=== PATIENT | female | born 1970 | race African-American/Black ===

== ENCOUNTER 2018-04-17 00:13 | Emergency (ER) | payer BC ==
[2018-04-17] MEDS ORDERED: NITROGLYCERIN 1 GM PKT TD ONE (01:02)
[2018-04-17] MEDS ORDERED: DIAZEPAM 5 MG TABLET ONE (01:02)
[2018-04-17 01:22] LABS: Absolute Lymphocytes (CBC) 1.7 K/uL (0.7-4.9); Absolute Monocytes 0.3 K/uL (0.1-1.3); Absolute Neutrophil 2.3 K/uL (1.8-8.0); Basophils % 1.1 % (0-1.3); Eosinophils % 1.8 % (0-4.4); Hematocrit 36.1 % (36.0-45.0); Lymphocytes % 39.4 % (15.3-44.8); MCH 29.6 pg (27.0-35.0); MCV 87.5 fL (80-100); MPV 9.1 fL (7.6-11.3); Monocytes % 6.9 % (3.3-12.3); RBC Red Blood Cell Count 4.12 M/uL (3.86-4.86)
[2018-04-17 01:27] LABS: Protime INR 0.92
[2018-04-17] MEDS ORDERED: cloNIDine HCl 0.1 MG TAB ONE (01:34)
[2018-04-17 02:01] LABS: ALT/SGPT 52 U/L (12-78); AST/SGOT 53 U/L (15-37); Albumin 3.5 g/dL (3.4-5.0); Alkaline Phosphatase 113 U/L (45-117); BUN Blood Urea Nitrogen 12 mg/dL (7-18); Bicarbonate 26 mmol/L (21-32); Bilirubin Direct < 0.1 mg/dL (0-0.2); Bilirubin Total 0.3 mg/dL (0.2-1.0); Glucose Level 152 mg/dL (74-106); Magnesium 2.3 mg/dL (1.8-2.4); NT PRO-BNP 300 pg/mL (<125); Potassium 3.4 mmol/L (3.5-5.1); Protein, Total 7.3 g/dL (6.4-8.2); Sodium Level 140 mmol/L (136-145); Troponin (Emerg Dept Use Only) < 0.02 ng/mL (0.0-0.045)
--- NOTE | 2018-04-17 02:26 | EDPHYS ---
Physician Documentation [facility] Name: Kiera Cowart Age: 47 yrs Sex: Female : 1970 Arrival Date: 04/17/2018 Time: 00:15 Bed 8 Private MD: Arelis Amador C ED Physician Oj Lei HPI: 04/17 01:33 This 47 yrs old Black Female presents to ER via Ambulatory with complaints of Anxiety. snw 01:33 The patient presents to the emergency department with anxiety, over unknown snw circumstances. Onset: The symptoms/episode began/occurred suddenly, unable to sleep because she felt short of breath, thinks her anxiety is high so it has increased her blood pressure. Denies headache, visual changes, nausea, chest pain. Discussed with patient that her blood pressure being so high might be the cause of her anxiety and not the reverse.. Past psychiatric history: Prior diagnosis: no previous psychiatric diagnosis known, Psychiatric medications include: none, Primary psychiatric physician: the patient does not have a primary psychiatric physician. Associated signs and symptoms: Pertinent positives; anxiety, insomnia. Severity of symptoms: At their worst the symptoms were moderate. The patient has not experienced similar symptoms in the past. pt states her PCP tried to take her off the Clonidine that she has been taking for years and put her on some other HTN med. Pt states she didn't like the way they made her feel so she has not been taking any medications.. Historical: - Allergies: 00:28 No Known Allergies; tl2 - PMHx: 00:28 Hypertension; tl2 - PSHx: 00:28 ; tl2 - Immunization history:: Adult Immunizations up to date. - Social history:: Smoking status: Patient uses tobacco products, smokes one-half pack cigarettes per day. - Ebola Screening: : No symptoms or risks identified at this time. ROS: 01:33 Constitutional: Negative for fever, chills, and weight loss, Eyes: Negative for injury, snw pain, redness, and discharge, ENT: Negative for injury, pain, and discharge, Neck: Negative for injury, pain, and swelling, Cardiovascular: Negative for chest pain, palpitations, and edema, Respiratory: Negative for shortness of breath, cough, wheezing, and pleuritic chest pain, Abdomen/GI: Negative for abdominal pain, nausea, vomiting, diarrhea, and constipation, Back: Negative for injury and pain, : Negative for injury, bleeding, discharge, and swelling, MS/Extremity: Negative for injury and deformity, Skin: Negative for injury, rash, and discoloration, Neuro: Negative for headache, weakness, numbness, tingling, and seizure. 01:33 Psych: Positive for anxiety. Exam: 01:32 Constitutional: This is a well developed, well nourished patient who is awake, alert, snw and in no acute distress. Head/Face: Normocephalic, atraumatic. Eyes: Pupils equal round and reactive to light, extra-ocular motions intact. Lids and lashes normal. Conjunctiva and sclera are non-icteric and not injected. Cornea within normal limits. Periorbital areas with no swelling, redness, or edema. ENT: Nares patent. No nasal discharge, no septal abnormalities noted. Tympanic membranes are normal and external auditory canals are clear. Oropharynx with no redness, swelling, or masses, exudates, or evidence of obstruction, uvula midline. Mucous membranes moist. Neck: Trachea midline, no thyromegaly or masses palpated, and no cervical lymphadenopathy. Supple, full range of motion without nuchal rigidity, or vertebral point tenderness. No Meningismus. Chest/axilla: Normal chest wall appearance and motion. Nontender with no deformity. No lesions are appreciated. Cardiovascular: Regular rate and rhythm with a normal S1 and S2. No gallops, murmurs, or rubs. Normal PMI, no JVD. No pulse deficits. Respiratory: Lungs have equal breath sounds bilaterally, clear to auscultation and percussion. No rales, rhonchi or wheezes noted. No increased work of breathing, no retractions or nasal flaring. Abdomen/GI: Soft, non-tender, with normal bowel sounds. No distension or tympany. No guarding or rebound. No evidence of tenderness throughout. Back: No spinal tenderness. No costovertebral tenderness. Full range of motion. Skin: Warm, dry with normal turgor. Normal color with no rashes, no lesions, and no evidence of cellulitis. MS/ Extremity: Pulses equal, no cyanosis. Neurovascular intact. Full, normal range of motion. Neuro: Awake and alert, GCS 15, oriented to person, place, time, and situation. Cranial nerves II-XII grossly intact. Motor strength 5/5 in all extremities. Sensory grossly intact. Cerebellar exam normal. Normal gait. 01:32 Psych: Behavior/mood is pleasant, cooperative, Affect is calm, Oriented to person, place, time, Patient has no thoughts/intents to harm self or others. Judgement / Insight is normal. Vital Signs: 00:28 BP 260 / 127; Pulse 65; Resp 20; Temp 97.9(O); Pulse Ox 100% on R/A; Weight 81.65 kg; tl2 Height 5 ft. 0 in. (152.40 cm); Pain 0/10; 01:24 BP 236 / 112; Pulse 70; Resp 18; Pulse Ox 100% on R/A; tl2 02:07 BP 192 / 111; Pulse 76; Resp 18; Pulse Ox 100% on R/A; tl2 02:47 BP 182 / 104; Pulse 82; Resp 18; Pulse Ox 99% on R/A; tl2 00:28 Body Mass Index 35.15 (81.65 kg, 152.40 cm) tl2 MDM: 00:52 Patient medically screened. snw 02:25 Data reviewed: vital signs, nurses notes. Data interpreted: Pulse oximetry: on room air snw is 100 %. Interpretation: normal. Counseling: I had a detailed discussion with the patient and/or guardian regarding: the historical points, exam findings, and any diagnostic results supporting the discharge/admit diagnosis, the presence of at least one elevated blood pressure reading (>120/80) during this emergency department visit, lab results, radiology results, the need for outpatient follow up, to return to the emergency department if symptoms worsen or persist or if there are any questions or concerns that arise at home. Special discussion: Based on the history and exam findings, there is no indication for further emergent testing or inpatient evaluation. I discussed with the patient/guardian the need to see the primary care provider for further evaluation of the symptoms. 04/17 00:44 Order name: PT-INR; Complete Time: : snw 04/17 00:44 Order name: NT PRO-BNP; Complete Time: 02: snw 04/17 00:44 Order name: Basic Metabolic Panel; Complete Time: snw 04/17 00:44 Order name: CBC with Diff; Complete Time: snw 04/17 00:44 Order name: LFT's; Complete Time: 02:25 snw 04/17 00:44 Order name: Magnesium; Complete Time: 02:25 snw 04/17 00:44 Order name: Troponin (emerg Dept Use Only); Complete Time: 02:25 snw 04/17 00:44 Order name: XRAY Chest (1 view) snw 04/17 00:44 Order name: EKG; Complete Time: 00:45 snw 04/17 00:44 Order name: Cardiac monitoring; Complete Time: 00:53 snw 04/17 00:44 Order name: TSH; Complete Time: 02:25 snw 04/17 00:44 Order name: EKG - Nurse/Tech; Complete Time: 00:53 snw 04/17 00:44 Order name: IV Saline Lock; Complete Time: 00:55 snw 04/17 00:44 Order name: Labs collected and sent; Complete Time: 00:55 snw 04/17 00:44 Order name: O2 Per Protocol; Complete Time: 00:53 snw 04/17 00:44 Order name: O2 Sat Monitoring; Complete Time: 00:53 snw Administered Medications: 00:57 Drug: Valium 5 mg Route: PO; tl2 02:00 Follow up: Response: No adverse reaction; Anxiety decreased tl2 00:58 Drug: Nitro-Bid Ointment 2 % 1 inches Route: Transdermal; Site: anterior chest wall; tl2 01:28 Drug: cloNIDine 0.1 mg Route: PO; tl2 02:49 Follow up: Response: No adverse reaction; Blood pressure is lowered tl2 Disposition: 05:59 Co-signature as Attending Physician, Oj Lei MD. ma2 Disposition: 04/17/18 02:25 Discharged to Home. Impression: Essential (primary) hypertension, Patient's intentional underdosing of medication regimen - no antihypertensives in months. - Condition is Stable. - Discharge Instructions: Hypertension, DASH Eating Plan, Managing Your Hypertension. - Prescriptions for Norvasc 5 mg Oral Tablet - take 1 tablet by ORAL route once daily; 20 tablet. Clonidine 0.1 mg Oral Tablet - take 1 tablet by ORAL route every 12 hours; 60 tablet. - Medication Reconciliation Form, Thank You Letter, Antibiotic Education, Prescription Opioid Use form. - Follow up: Private Physician; When: 1 - 2 days; Reason: Recheck today's complaints, Continuance of care, Re-evaluation by your physician. Follow up: Emergency Department; When: As needed; Reason: Worsening of condition. Signatures: Dispatcher [employer] EDSabrina Fairbanks, FRANCINEC RETANNER-Csnw Sara Aquino RN RN tl2 Oj Lei MD MD ma2 Corrections: (The following items were deleted from the chart) 02:50 02:25 04/17/2018 02:25 Discharged to Home. Impression: Essential (primary) tl2 hypertension; Patient's intentional underdosing of medication regimen - no antihypertensives in months. Condition is Stable. Discharge Instructions: Hypertension, DASH Eating Plan, Managing Your Hypertension. Prescriptions for Norvasc 5 mg Oral Tablet - take 1 tablet by ORAL route once daily; 20 tablet, Clonidine 0.1 mg Oral Tablet - take 1 tablet by ORAL route every 12 hours; 60 tablet. and Forms are Medication Reconciliation Form, Thank You Letter, Antibiotic Education, Prescription Opioid Use. Follow up: Private Physician; When: 1 - 2 days; Reason: Recheck today's complaints, Continuance of care, Re-evaluation by your physician. Follow up: Emergency Department; When: As needed; Reason: Worsening of condition. snw
--- NOTE | 2018-04-17 02:26 | ER ---
Nurse's Notes [facility] Name: Kiera Cowart Age: 47 yrs Sex: Female : 1970 Arrival Date: 04/17/2018 Time: 00:15 Bed 8 Private MD: Arelis Amador C Diagnosis: Essential (primary) hypertension;Patient's intentional underdosing of medication regimen-no antihypertensives in months Presentation: 04/17 00:27 Presenting complaint: Patient states: "I've been having anxiety for 2 weeks and having tl2 trouble sleeping, it's been hard to get a deep breath." Pt's BP 260/127 in triage, pt reports stopping BP medication a long time ago because it makes her feel funny. Transition of care: patient was not received from another setting of care. Onset of symptoms was April 02, 2018. Risk Assessment: Do you want to hurt yourself or someone else? Patient reports no desire to harm self or others. Initial Sepsis Screen: Does the patient meet any 2 criteria? No. Patient's initial sepsis screen is negative. Does the patient have a suspected source of infection? No. Patient's initial sepsis screen is negative. Care prior to arrival: None. 00:27 Method Of Arrival: Ambulatory tl2 00:27 Acuity: EDNA 3 tl2 Triage Assessment: 00:28 General: Appears in no apparent distress. uncomfortable, Behavior is cooperative, tl2 appropriate for age, anxious. Pain: Denies pain. Neuro: Level of Consciousness is awake, alert, obeys commands, Oriented to person, place, time, situation, Denies weakness blurred vision dizziness, headache. Cardiovascular: Denies chest pain. Respiratory: Reports shortness of breath Airway is patent Respiratory effort is even, unlabored, Respiratory pattern is regular, symmetrical. GI: No signs and/or symptoms were reported involving the gastrointestinal system. Derm: Skin is pink, warm \\T\\ dry. Historical: - Allergies: 00:28 No Known Allergies; tl2 - PMHx: 00:28 Hypertension; tl2 - PSHx: 00:28 ; tl2 - Immunization history:: Adult Immunizations up to date. - Social history:: Smoking status: Patient uses tobacco products, smokes one-half pack cigarettes per day. - Ebola Screening: : No symptoms or risks identified at this time. Screenin:30 Abuse screen: Denies threats or abuse. Nutritional screening: No deficits noted. tl2 Tuberculosis screening: No symptoms or risk factors identified. Fall Risk None identified. Assessment: 00:28 General: see triage assessment. tl2 01:31 Reassessment: Patient appears in no apparent distress at this time. No changes from tl2 previously documented assessment. Patient and/or family updated on plan of care and expected duration. Pain level reassessed. Patient is alert, oriented x 3, equal unlabored respirations, skin warm/dry/pink. 02:47 Reassessment: Patient appears in no apparent distress at this time. Patient and/or tl2 family updated on plan of care and expected duration. Pain level reassessed. Patient is alert, oriented x 3, equal unlabored respirations, skin warm/dry/pink. Pt verbalized understanding of discharge instructions, need for follow up and prescription usage Patient states feeling better. Vital Signs: 00:28 BP 260 / 127; Pulse 65; Resp 20; Temp 97.9(O); Pulse Ox 100% on R/A; Weight 81.65 kg; tl2 Height 5 ft. 0 in. (152.40 cm); Pain 0/10; 01:24 BP 236 / 112; Pulse 70; Resp 18; Pulse Ox 100% on R/A; tl2 02:07 BP 192 / 111; Pulse 76; Resp 18; Pulse Ox 100% on R/A; tl2 02:47 BP 182 / 104; Pulse 82; Resp 18; Pulse Ox 99% on R/A; tl2 00:28 Body Mass Index 35.15 (81.65 kg, 152.40 cm) tl2 ED Course: 00:15 Patient arrived in ED. am2 00:15 Arelis Amador FNP is Private Physician. am2 00:28 Triage completed. tl2 00:28 Arm band placed on right wrist. tl2 00:30 Patient has correct armband on for positive identification. Bed in low position. Call tl2 light in reach. Side rails up X 1. Adult w/ patient. 00:45 Sara Aquino RN is Primary Nurse. tl2 00:51 Sabrina Gonzalez FNP-C is [facility]. snw 00:52 Oj Lei MD is Attending Physician. snw 00:55 Inserted saline lock: 20 gauge in right forearm, using aseptic technique. Blood lp1 collected. 01:02 X-ray completed. Portable x-ray completed in exam room. Patient tolerated procedure sg4 well. 01:05 XRAY Chest (1 view) In Process Unspecified. EDMS 02:47 No provider procedures requiring assistance completed. IV discontinued, intact, tl2 bleeding controlled, No redness/swelling at site. Pressure dressing applied. Administered Medications: 00:57 Drug: Valium 5 mg Route: PO; tl2 02:00 Follow up: Response: No adverse reaction; Anxiety decreased tl2 00:58 Drug: Nitro-Bid Ointment 2 % 1 inches Route: Transdermal; Site: anterior chest wall; tl2 01:28 Drug: cloNIDine 0.1 mg Route: PO; tl2 02:49 Follow up: Response: No adverse reaction; Blood pressure is lowered tl2 Outcome: 02:25 Discharge ordered by MD. snw 02:47 Discharged to home ambulatory, with family. tl2 02:47 Condition: stable 02:47 Discharge instructions given to patient, family, Instructed on discharge instructions, follow up and referral plans. medication usage, Demonstrated understanding of instructions, follow-up care, medications, Prescriptions given X 2. 02:50 Patient left the ED. tl2 Signatures: Dispatcher [employer] EDMI Sabrina Gonzalez, PSYCHOLOGIST PERSONNEL-C PSYCHOLOGIST PERSONNEL-Csnw Tanika Wise, RN RN lp1 Sara Aquino RN RN tl2 Bhargavi Orozco Susana sg4
--- NOTE | 2018-04-17 06:07 | EKG ---
Test Date: 2018-04-17 Test Time: 00:54:55 Matchbook Maker: ROSALIND MEASUREMENT RESULTS: Intervals: Rate: 70 MA: 146 QRSD: 94 QT: 446 QTc: 481 [place]: P: 40 MA: 146 QRS: 36 T: 136 INTERPRETIVE STATEMENTS: Normal sinus rhythm Left ventricular hypertrophy with repolarization abnormality Prolonged QT Abnormal ECG Compared to ECG 07/09/2014 12:06:41 Prolonged QT interval now present Ventricular premature complex(es) no longer present Electronically Signed On 04-17-18 06:06:50 MARKETING OUTREACH COORDINATOR by Bladimir Kauffman
--- NOTE | 2018-04-17 13:47 | RAD REPORT ---
EXAM DESCRIPTION: RAD - Chest Single View - 04/17/2018 1:06 am CLINICAL HISTORY: anxiety Chest pain. COMPARISON: CHEST SINGLE VIEW dated 07/09/2014; CHEST SINGLE VIEW dated 07/04/2014; CHEST SINGLE VIEW dated 07/16/2008 FINDINGS: Portable technique limits examination quality. The lungs are grossly clear. Mildly tortuous thoracic aorta. The heart is normal in size. No displace d fractures. IMPRESSION: No acute intrathoracic process suspected.
== END 2018-04-17 02:50 | disposition home or self-care (01) ==
LOC: ER 00:13
DX: I10 Essential (primary) hypertension (principal); Z91.128 Patient's intentional underdosing of medication regimen for other reason; F17.210 Nicotine dependence, cigarettes, uncomplicated
CPT/HCPCS: 36415; 71045; 80048; 80076; 83735; 83880; 84443; 84484; 85025; 85610; 93005; 99284

== ENCOUNTER 2018-07-20 10:32 | Emergency (ER) | payer SELFPAY ==
[2018-07-20] MEDS ORDERED: cloNIDine HCl 0.1 MG TAB ONE (11:48)
[2018-07-20] MEDS ORDERED: DIAZEPAM 2 MG TABLET ONE (11:48)
[2018-07-20] MEDS ORDERED: HYDROCODONE/APAP 5/325 MG TAB ONE (11:48)
--- NOTE | 2018-07-20 12:05 | RAD REPORT ---
EXAM DESCRIPTION: Jazmin Henao (2 Views)07/20/2018 11:57 am CLINICAL HISTORY: Cough COMPARISON: March 2018 FINDINGS: The lungs appear clear of acute infiltrate. The heart is borderline enlarged IMPRESSION: No acute abnormalities displayed
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
== END 2018-07-20 12:31 | disposition home or self-care (01) ==
LOC: ER 10:32
DX: M54.5 Low back pain (principal); V49.40XA Driver injured in collision with unspecified motor vehicles in traffic accident, initial encounter; I10 Essential (primary) hypertension; F17.210 Nicotine dependence, cigarettes, uncomplicated
CPT/HCPCS: 71046; 99284

== ENCOUNTER 2018-09-16 08:03 | Emergency (ER) | payer SELFPAY ==
[2018-09-16] MEDS ORDERED: HYDROCODONE/APAP 7.5/325 MG TAB ONE (08:36)
--- NOTE | 2018-09-16 09:55 | RAD REPORT ---
EXAM DESCRIPTION: RAD - Wrist Left 3 View - 09/16/2018 9:17 am CLINICAL HISTORY: Fall, wrist pain COMPARISON: None. FINDINGS: No fracture is identified. There is no dislocation or periosteal reaction noted. Patient h as a minimal negative ulnar variance configuration. This is usually asymptomatic. Configuration of t he scaphoid is somewhat irregular but without a definitive fracture. Correlation can be made with any focal pain symptoms near the scaphoid. Repeat imaging can be performed in 7 days if the patient is s till symptomatic. Scapholunate joint space is normal. IMPRESSION: No fracture or acute bone finding confirmed. Configuration of the scaphoid is probably s till normal range. Repeat imaging can be performed in 7 days to re-evaluate the scaphoid if the patie nt has localizing symptoms.
--- NOTE | 2018-09-16 10:14 | EDPHYS ---
Physician Documentation [facility] Name: Kiera Cowart Age: 48 yrs Sex: Female : 1970 Arrival Date: 09/16/2018 Time: 08:06 Bed 15 Private MD: None, None ED Physician Oj Lei HPI: 09/16 10:01 This 48 yrs old Black Female presents to ER via Ambulatory with complaints of Fall kb Injury, Wrist Injury. 10:01 Details of fall: The patient fell from an upright position, while running. Onset: The kb symptoms/episode began/occurred yesterday. Associated injuries: The patient sustained left wrist, decreased range of motion, painful injury. Severity of symptoms: At their worst the symptoms were moderate, in the emergency department the symptoms are unchanged. The patient has not experienced similar symptoms in the past. The patient has not recently seen a physician. Pt reports left wrist and hand pain after falling last night. Reports it was dark outside, she was running through an [employer] complex because she was worried about snakes and she fell. . 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 - Social history:: Smoking status: Patient uses tobacco products, smokes one pack cigarettes per day. - Ebola Screening: : Patient negative for fever greater than or equal to 101.5 degrees Fahrenheit, and additional compatible Ebola Virus Disease symptoms Patient denies exposure to infectious person Patient denies travel to an Ebola-affected area in the 21 days before illness onset No symptoms or risks identified at this time. ROS: 09:58 Constitutional: Negative for fever, chills, and weight loss, Cardiovascular: Negative kb for chest pain, palpitations, and edema, Respiratory: Negative for shortness of breath, cough, wheezing, and pleuritic chest pain, Abdomen/GI: Negative for abdominal pain, nausea, vomiting, diarrhea, and constipation, Skin: Negative for injury, rash, and discoloration, Neuro: Negative for headache, weakness, numbness, tingling, and seizure. 09:58 MS/extremity: Positive for injury or acute deformity, decreased range of motion, pain, tenderness, of the left wrist. Exam: 09:58 Constitutional: This is a well developed, well nourished patient who is awake, alert, kb and in no acute distress. Head/Face: Normocephalic, atraumatic. Chest/axilla: Normal chest wall appearance and motion. Nontender with no deformity. No lesions are appreciated. Cardiovascular: Regular rate and rhythm with a normal S1 and S2. No gallops, murmurs, or rubs. Normal PMI, no JVD. No pulse deficits. Respiratory: Lungs have equal breath sounds bilaterally, clear to auscultation and percussion. No rales, rhonchi or wheezes noted. No increased work of breathing, no retractions or nasal flaring. Abdomen/GI: Soft, non-tender, with normal bowel sounds. No distension or tympany. No guarding or rebound. No evidence of tenderness throughout. Skin: Warm, dry with normal turgor. Normal color with no rashes, no lesions, and no evidence of cellulitis. Neuro: Awake and alert, GCS 15, oriented to person, place, time, and situation. Cranial nerves II-XII grossly intact. Motor strength 5/5 in all extremities. Sensory grossly intact. Cerebellar exam normal. Normal gait. 09:58 Musculoskeletal/extremity: Extremities: grossly normal except: noted in the left wrist: decreased ROM, pain, tenderness, ROM: limited active range of motion due to pain, in the left wrist and left hand, Circulation is intact in all extremities. Sensation intact. Vital Signs: 08:18 BP 190 / 107; Pulse 99; Resp 18 S; Temp 98.3; Pulse Ox 98% on R/A; Weight 81.65 kg; hj Height 5 ft. 0 in. (152.40 cm); Pain 10/10; 09:24 BP 181 / 100; Pulse 80; Resp 18; Pulse Ox 99% on R/A; hj 10:23 BP 184 / 100; Pulse 77; Resp 18; Pulse Ox 100% on R/A; hj 11:17 BP 165 / 101; Pulse 97; Resp 16; Pulse Ox 100% on R/A; aj 08:18 Body Mass Index 35.15 (81.65 kg, 152.40 cm) hj MDM: 08:18 Patient medically screened. kb 09:57 Data reviewed: vital signs, nurses notes. Data interpreted: Pulse oximetry: on room air kb is 99 %. Interpretation: normal. Counseling: I had a detailed discussion with the patient and/or guardian regarding: the historical points, exam findings, and any diagnostic results supporting the discharge/admit diagnosis, radiology results, the need for outpatient follow up, a orthopedic surgeon, to return to the emergency department if symptoms worsen or persist or if there are any questions or concerns that arise at home. 09/16 08:21 Order name: Wrist Left (3 View) XRAY; Complete Time: 09:57 kb 09/16 09:58 Order name: Wrist Splint; Complete Time: 10:25 kb 09/16 10:03 Order name: Vital Signs; Complete Time: 10:25 kb Administered Medications: 08:22 Drug: [place] (7.5 mg-325 mg) 1 tabs Route: PO; hj 09:38 Follow up: Response: No adverse reaction; Pain is decreased hj 10:28 Drug: cloNIDine 0.1 mg Route: PO; hj 10:32 Follow up: Response: No adverse reaction hj 10:32 Follow up: Response: Blood pressure is lowered hj Disposition: 17:15 Co-signature as Attending Physician, Oj Lei MD. ma2 Disposition: 09/16/18 10:14 Discharged to Home. Impression: Pain in left wrist, Fall on same level from slipping, tripping and stumbling. - Condition is Stable. - Discharge Instructions: Wrist Pain, [id number]. - Prescriptions for Diclofenac Sodium 75 mg Oral Tablet, Delayed Release (E.C.) - take 1 tablet by ORAL route 2 times per day As needed; 30 tablet. - Medication Reconciliation Form, Thank You Letter, Antibiotic Education, Prescription Opioid Use form. - Follow up: Emergency Department; When: As needed; Reason: Worsening of condition. Follow up: Private Physician; When: 2 - 3 days; Reason: Recheck today's complaints, Continuance of care, Re-evaluation by your physician. - Notes: If pain persists, follow up with ortho for re-evaluation and repeat x-ray in 7 days Signatures: Dispatcher [employer] Rosa Vela FNP-C FNP-Ckb Bhargavi Ochoa, RN Elisabeth Bolaños, RN RN Naeem Espinosa RN RN Oj Santoyo MD MD ma2 Corrections: (The following items were deleted from the chart) 11:21 10:14 09/16/2018 10:14 Discharged to Home. Impression: Pain in left wrist; Fall on same aj level from slipping, tripping and stumbling. Condition is Stable. Discharge Instructions: Wrist Pain, Cnab-mr-Ojne. Prescriptions for Diclofenac Sodium 75 mg Oral Tablet, Delayed Release (E.C.) - take 1 tablet by ORAL route 2 times per day As needed; 30 tablet. and Forms are Medication Reconciliation Form, Thank You Letter, Antibiotic Education, Prescription Opioid Use. Follow up: Emergency Department; When: As needed; Reason: Worsening of condition. Follow up: Private Physician; When: 2 - 3 days; Reason: Recheck today's complaints, Continuance of care, Re-evaluation by your physician. kb
--- NOTE | 2018-09-16 10:14 | ER ---
Nurse's Notes [facility] Name: Kiera Cowart Age: 48 yrs Sex: Female : 1970 Arrival Date: 09/16/2018 Time: 08:06 Bed 15 Private MD: None, None Diagnosis: Pain in left wrist;Fall on same level from slipping, tripping and stumbling Presentation: 09/16 08:16 Presenting complaint: Patient states: fell last night, from standing, fell to left left iw side, tried to catch herself, no has pain 10/10 to left wrist/hand. Transition of care: patient was not received from another setting of care. Onset of symptoms was September 15, 2018. Risk Assessment: Do you want to hurt yourself or someone else? Patient reports no desire to harm self or others. Initial Sepsis Screen: Does the patient meet any 2 criteria? No. Patient's initial sepsis screen is negative. Does the patient have a suspected source of infection? No. Patient's initial sepsis screen is negative. Care prior to arrival: None. 08:16 Method Of Arrival: Ambulatory iw 08:16 Acuity: EDNA 4 iw Triage Assessment: 08:33 General: Appears in no apparent distress. uncomfortable, Behavior is calm, cooperative, hj appropriate for age. Pain: Complains of pain in left hand. 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 - Social history:: Smoking status: Patient uses tobacco products, smokes one pack cigarettes per day. - Ebola Screening: : Patient negative for fever greater than or equal to 101.5 degrees Fahrenheit, and additional compatible Ebola Virus Disease symptoms Patient denies exposure to infectious person Patient denies travel to an Ebola-affected area in the 21 days before illness onset No symptoms or risks identified at this time. Screenin:32 Abuse screen: Denies threats or abuse. Denies injuries from another. Nutritional hj screening: No deficits noted. Tuberculosis screening: No symptoms or risk factors identified. Fall Risk None identified. Assessment: 08:33 General: Appears in no apparent distress. uncomfortable, Behavior is calm, cooperative, hj appropriate for age. Pain: Complains of pain in L wrist. Neuro: Level of Consciousness is awake, alert, obeys commands, Oriented to person, place, time, situation, Appropriate for age. Cardiovascular: Capillary refill < 3 seconds Patient's skin is warm and dry. Respiratory: Airway is patent Respiratory effort is even, unlabored, Respiratory pattern is regular, symmetrical. GI: No signs and/or symptoms were reported involving the gastrointestinal system. : No signs and/or symptoms were reported regarding the genitourinary system. EENT: No signs and/or symptoms were reported regarding the EENT system. Derm: No signs and/or symptoms reported regarding the dermatologic system. Musculoskeletal: No signs and/or symptoms reported regarding the musculoskeletal system. Vital Signs: 08:18 BP 190 / 107; Pulse 99; Resp 18 S; Temp 98.3; Pulse Ox 98% on R/A; Weight 81.65 kg; hj Height 5 ft. 0 in. (152.40 cm); Pain 10/10; 09:24 BP 181 / 100; Pulse 80; Resp 18; Pulse Ox 99% on R/A; hj 10:23 BP 184 / 100; Pulse 77; Resp 18; Pulse Ox 100% on R/A; hj 11:17 BP 165 / 101; Pulse 97; Resp 16; Pulse Ox 100% on R/A; aj 08:18 Body Mass Index 35.15 (81.65 kg, 152.40 cm) ED Course: 08:06 Patient arrived in ED. mr 08:07 None, None is Private Physician. mr 08:12 Naeem Torres, FAIZA is Primary Nurse. hj 08:17 Triage completed. iw 08:18 Rosa Brady FNP-C is PHCP. kb 08:18 Oj Lei MD is Attending Physician. kb 08:18 Arm band placed on. iw 08:33 Patient has correct armband on for positive identification. Bed in low position. Call light in reach. Side rails up X 1. Adult w/ patient. 09:17 Wrist Left (3 View) XRAY In Process Unspecified. EDMS 10:24 No provider procedures requiring assistance completed. Patient did not have IV access hj during this emergency room visit. Administered Medications: 08:22 Drug: [place] (7.5 mg-325 mg) 1 tabs Route: PO; hj 09:38 Follow up: Response: No adverse reaction; Pain is decreased hj 10:28 Drug: cloNIDine 0.1 mg Route: PO; hj 10:32 Follow up: Response: No adverse reaction hj 10:32 Follow up: Response: Blood pressure is lowered hj Outcome: 10:14 Discharge ordered by . kb 10:24 Discharged to home ambulatory, with family. hj 10:24 Condition: stable 10:24 Discharge instructions given to patient, Instructed on discharge instructions, follow up and referral plans. medication usage, Demonstrated understanding of instructions, follow-up care, medications, Prescriptions given X 1. 11:21 Patient left the ED. aj Signatures: Dispatcher [employer] EDMS Rosa Brady, TRAMAINE PROCESS ARCHITECT-Bhargavi Patterson RN RN aj Rivera, Mary mr Williams, Irene, RN RN iw Joaquin, Henry, RN RN hj Corrections: (The following items were deleted from the chart) 09:24 08:18 Pulse 99bpm; Resp 18bpm; Spontaneous; Pulse Ox 98% RA; Temp 98.3F; 81.65 kg; hj Height 5 ft. 0 in.; BMI: 35.1; Pain 10; iw 10:25 10:24 Discharge instructions given to patient, Instructed on discharge instructions, hj follow up and referral plans. Demonstrated understanding of instructions, follow-up care, hj
[2018-09-16] MEDS ORDERED: cloNIDine HCl 0.1 MG TAB ONE (10:42)
== END 2018-09-16 11:21 | disposition home or self-care (01) ==
LOC: ER 08:03
DX: M25.532 Pain in left wrist (principal); W01.0XXA Fall on same level from slipping, tripping and stumbling without subsequent striking against object, initial encounter; Y93.9 Activity, unspecified; Y92.9 Unspecified place or not applicable
CPT/HCPCS: 99283